=== PATIENT | female | born 1995 | race Caucasian/White ===

== ENCOUNTER 2016-12-22 11:52 | Emergency (ER) | payer OTHER ==
[~2016-12-22] VITALS: Ht 160 cm; Wt 53.9 kg
[~2016-12-22 11:52] MED LIST: ANTIVERT25 MG PO; CIPRO500 MG PO; FLEXERIL10 MG PO; LORTAB 5-325 M1 EACH PO; MOTRIN600 MG PO; NAPROSYN500 MG PO; NAPROXEN500 MG PO; ZOFRAN ODT4 MG PO
[2016-12-22 11:56] VITALS: BP 113/88
[2016-12-22 12:38] LABS: ADD MIUA? YES; BILIRUBIN NEGATIVE; BLOOD NEGATIVE; COLOR YELLOW ((YELLOW)); GLUCOSE (STRIP) NEGATIVE; KETONES NEGATIVE; LEUKOCYTES TRACE; NITRITE NEGATIVE; PROTEIN (STRIP) NEGATIVE; SPECIFIC GRAVITY 1.016 (1.000-1.030); UROBILINOGEN 0.2 MG/DL (0.2-1.0)
[2016-12-22 12:44] LABS: BACTERIA NONE SEEN /HPF; EPITHELIAL CELLS RARE /HPF; MUCUS TRACE /LPF; RED BLOOD CELLS 0-5 /HPF (0-5); UCUL ADDED? NO
[2016-12-22 12:49] LABS: HEMATOCRIT 36.7 % (36.0-46.0); MCH 28.5 PG (29.0-34.0); MCHC 32.4 G/DL (30.0-36.0); MCV 87.8 FL (83-99); MEAN PLAT.VOLUME 10.2 uM^3 (9.5-12.4); PLATELET COUNT 142 K/uL (156-360); RBC DIS.WIDTH-CV 12.9 % (11.8-14.6); RBC DIS.WIDTH-SD 40.3 % (39-53); RED BLOOD COUNT 4.18 M/uL (3.80-5.20); WHITE BLOOD COUNT 10.6 K/uL (4.1-10.2)
[2016-12-22 12:58] LABS: CHLORIDE 108 mEq/L (99-109); SODIUM 140 mEq/L (136-147)
[2016-12-22 13:01] LABS: GLUCOSE 85 mg/dL (70-99)
[2016-12-22 13:02] LABS: ANION GAP 7 MEQ/L (2-14)
[2016-12-22 13:03] LABS: TOTAL BILIRUBIN 0.4 mg/dL (0.0-1.0)
[2016-12-22 13:04] LABS: ALKALINE PHOSPHATASE 48 IU/L (3-129); GFR ESTIMATE (CALCULATED) > 59 mL/min/
[2016-12-22 13:05] LABS: UREA NITROGEN (BUN) 11 mg/dL (9-23)
[2016-12-22 13:14] LABS: QUANTITATIVE HCG < 4.0 MIU/ML
[2016-12-22] MEDS ORDERED: ZOFRAN ODT4 MG PO (14:18)
[2016-12-22 16:01] LABS: SAMPLE HEMOLYSIS CHECK 0; SAMPLE ICTERIC CHECK 0; SAMPLE LIPEMIA CHECK 0
[2016-12-22 16:07] LABS: LIPASE 23 U/L (1.0-51.0)
== END 2016-12-22 14:44 | disposition left against medical advice (07) ==
LOC: EME 11:52
PROVIDERS: Nurse Practitioner Family
DX: R10.31 Right lower quadrant pain (principal); Z88.1 Allergy status to other antibiotic agents
CPT/HCPCS: 80053; 81003; 83690; 84702; 85027; 99281; 99283

== ENCOUNTER 2018-02-06 22:10 | Emergency (ER) | payer OTHER ==
[~2018-02-06] VITALS: Ht 160 cm; Wt 53.3 kg
[2018-02-06 22:52] LABS: HEMATOCRIT 34.2 % (36.0-46.0); HEMOGLOBIN 11.1 G/DL (11.9-15.5); MCH 27.1 PG (29.0-34.0); MCHC 32.5 G/DL (30.0-36.0); MCV 83.4 FL (83-99); PLATELET COUNT 191 K/uL (156-360); RBC DIS.WIDTH-CV 12.5 % (11.8-14.6); RBC DIS.WIDTH-SD 38.1 % (39-53); WHITE BLOOD COUNT 6.5 K/uL (4.1-10.2)
[2018-02-06 23:21] LABS: QUANTITATIVE HCG < 4.0 MIU/ML
[2018-02-07 00:42] LABS: APPEARANCE SL.HAZY ((CLEAR)); BILIRUBIN NEGATIVE; BLOOD LARGE; COLOR YELLOW ((YELLOW)); GLUCOSE (STRIP) NEGATIVE; KETONES NEGATIVE; LEUKOCYTES SMALL; NITRITE NEGATIVE; PROTEIN (STRIP) 30; SPECIFIC GRAVITY 1.016 (1.000-1.030); UROBILINOGEN 0.2 MG/DL (0.2-1.0)
[2018-02-07 01:07] LABS: RED BLOOD CELLS TNTC /HPF (0-5)
[2018-02-07 01:08] LABS: EPITHELIAL CELLS RARE /HPF; MUCUS NONE SEEN /LPF; WHITE BLOOD CELLS 0-5 /HPF (0-5)
[2018-02-07 01:09] LABS: BACTERIA RARE /HPF; UCUL ADDED? YES
[2018-02-07 01:40] VITALS: BP 101/64
[2018-02-07 01:40] LABS: SOURCE URINE
[2018-02-07 02:14] LABS: CHLORIDE 105 mEq/L (99-109); SODIUM 138 mEq/L (136-147)
[2018-02-07 02:16] LABS: GLUCOSE 97 mg/dL (70-99)
[2018-02-07 02:20] LABS: CREATININE 0.7 mg/dL (0.6-1.3); GFR ESTIMATE (CALCULATED) > 59 mL/min/
[2018-02-07 02:21] LABS: UREA NITROGEN (BUN) 12 mg/dL (9-23)
[2018-02-08 13:21] LABS: CHLAMYDIA TRACHOMATIS POSITIVE; NEISSERIA GONORRHOEAE POSITIVE
== END 2018-02-07 01:55 | disposition home or self-care (01) ==
LOC: EME 22:10
PROVIDERS: Emergency Medicine
DX: N92.6 Irregular menstruation, unspecified (principal); Z88.0 Allergy status to penicillin
CPT/HCPCS: 80048; 81003; 84702; 85027; 87086; 87210; 87491; 87591; 99281; 99285

== ENCOUNTER 2018-02-13 13:02 | Emergency (ER) | payer OTHER ==
[~2018-02-13] VITALS: Ht 160 cm; Wt 53.1 kg
[2018-02-13 13:50] VITALS: BP 117/74
== END 2018-02-13 13:50 | disposition home or self-care (01) ==
LOC: EME 13:02
DX: A74.9 Chlamydial infection, unspecified (principal); A54.9 Gonococcal infection, unspecified; Z88.0 Allergy status to penicillin
CPT/HCPCS: 99281; 99283; J0696